=== PATIENT | female | born 1955 | race Caucasian/White ===

== ENCOUNTER 2021-09-26 09:35 | Outpatient (CLI) | payer BC | END 2021-09-26 09:36 | disposition home or self-care (01) | LOC: CSHMAMMO 09:35 | PROVIDERS: ATTEND Obstetrics & Gynecology | DX: Z13.820 Encounter for screening for osteoporosis (principal); Z01.419 Encounter for gynecological examination (general) (routine) without abnormal findings; M85.89 Other specified disorders of bone density and structure, multiple sites | CPT/HCPCS: 77080 ==

== ENCOUNTER 2022-01-22 13:09 | Outpatient (CLI) | payer MEDICARE, BC | END 2022-01-22 13:10 | disposition home or self-care (01) | LOC: CSHMAMMO 13:09 | PROVIDERS: ATTEND Obstetrics & Gynecology | DX: Z12.31 Encounter for screening mammogram for malignant neoplasm of breast (principal); Z98.82 Breast implant status | CPT/HCPCS: 77063; 77067 ==